=== PATIENT | female | born 1945 ===

== ENCOUNTER 2017-12-05 06:26 | Day surgery (SDC) | payer OTHER ==
[~2017-12-05 06:26] MED LIST: ADULT LOW DOSE81 M1 PO; JANUMET 50-5001 EACH PO; LISINOPRIL2.5 MG PO; VIT D PO; ZOCOR20 MG PO
[2017-12-05] MEDS ORDERED: CIPRO500 MG PO (11:22)
[2017-12-05] MEDS ORDERED: PERCOCET 5-3251 EACH PO (11:24)
== END 2017-12-05 16:30 | disposition home or self-care (01) ==
LOC: CIR.AMB 06:26 → SURG 12:15 → EDSTATUS 12:15 → CIR.AMB 12:15
DX: N81.11 Cystocele, midline (principal)